=== PATIENT | male | born 1945 | race Native Hawaiian/Other Pacific Islander ===

== ENCOUNTER 2019-11-29 14:06 | Inpatient (IN) | payer OTHER ==
[~2019-11-29] VITALS: Ht 182.9 cm; Wt 76.7 kg
[2019-11-29] VITALS (14 sets, daily range): BP systolic 106–132; BP diastolic 50–78; TEMP 99.5–100.8; Ht 182.9 cm; Wt 76.7 kg
--- NOTE | 2019-11-29 14:00 | NUR ---
PT DIRECT ADMIT TO ICU FROM U PER BED. PT ASSISTED TO PCU BED FOR ISOLATION PURPOSES D/T DX OF FLU, BUT WITH ICU STATUS. PT PINK WITH DRY MOUTH & LIPS, ANSWERS 'NOEL' WHEN ASKED WHAT HIS NAME IS. ABD SOFT WITH BS. ADULT BRIEF DRY. + PULSES ALL EXTREMITIES. RESP EFFORT 33-55 . O2 SAT 89-91 ON ROOM AIR. MULTIPLE SCABBED AREAS TO ARMS MICHAEL.FADING BRUISE TO R ABD WITH SMALL SCAB IN THE CENTER. R ELBOW SL RED.
[~2019-11-29 14:06] MED LIST: ACET-206 PO; ALBU90AE13 INH; ASPI81TA4 PO; ASPIRIN 81 LOW81 MG PO; ATOR20TA2 PO; BUDE1AER5 INH; CEFU250T2 PO; CITALOPRAM10 M1 PO; CYAN10009 IM; DIVA250T PO; DONE5TAB PO; DONEPEZIL HYDRO10 M1 PO; ESCI10TA PO; LIPITOR40 MG PO; LISI20TA11 PO; LORA10TA3 PO; MAGNSUS68 PO; MELATONIN3 M1 PO; MEMA5TAB PO; METF100038 PO; METF500T PO; OSEL75CA PO; PRESERVISION PO; PROAIR HFA108 MCG/AC INH; RISP0.25 PO; TAMS0.4C PO; THIA100T8 PO; TRAZ50TA36 PO; TRAZODONE HYDR100 MG PO; ZESTRIL40 MG PO
--- NOTE | 2019-11-29 14:10 | NUR ---
22G INSYTE INSERTED X 1 STICK R HAND. SALINE LOCKED. DR SOLO NOTIFIED THAT PT WAS HERE.
--- NOTE | 2019-11-29 14:20 | NUR ---
DR SOLO IN TO SEE PT. NEW ORDERS.
--- NOTE | 2019-11-29 14:39 | NUR ---
ABG DRAWN PER RT.
[2019-11-29] MEDS ORDERED: DIVA250T PO (15:11)
[2019-11-29] MEDS ORDERED: DONE5TAB PO (15:12)
[2019-11-29] MEDS ORDERED: SYMBICORT1 AE1 INH (15:39)
--- NOTE | 2019-11-29 16:30 | NUR ---
PT DRINKING APPLE JUICE WITHOUT PROBLEMS. MOUTH CARE.
--- NOTE | 2019-11-29 17:35 | NUR ---
PT AWAKE & TRYING TO GET OFF OF THE FOOT OF THE BED. WHEN ASKED WHY HE WAS GETTING OOB HE SAID' I GOT TO PEE'.PT ASSISTED TO USE URINAL. 150 ML CLEAR RENEE URINE.ASSISTED PT TO PULL BACK UP IN BED, MIKE DENTON APPLIED, PT ON R SIDE.NS BOLUS STARTED VIA R HAND 22G INSYTE.
[2019-11-29 18:44] LABS: PLATELET COUNT 170 K/uL (142-355)
[2019-11-29 19:10] LABS: POTASSIUM 3.8 mmol/L (3.6-5.2)
[2019-11-30] VITALS (19 sets, daily range): BP systolic 108–154; BP diastolic 47–83; TEMP 97.1–99
--- NOTE | 2019-11-30 07:46 | NUR ---
RECIEVED REPORT PATIENT ASSISTED TO STANDING POSITION. VOIDED 300 ML URINAL. ALITTLE UNSTEADY WHEN UP. RESP DEPT HERE FOR ALTHEA TX. AM LABS ORDERED.
[2019-11-30 08:12] LABS: PLATELET COUNT 181 K/uL (142-355)
[2019-11-30 08:22] LABS: POTASSIUM 3.6 mmol/L (3.6-5.2)
--- NOTE | 2019-11-30 10:23 | NUR ---
PATIENT RESTING QUIETLY IN BED HOB UP EYES CLOSED RESP EVEN. VITALS SIGNS IMPROVING. RESPONDS TO VERBAL STIMULI CALM COOPERATIVE. DR SOLO VISITED CHECKED PATIENT, REPORTED ELEVATED BLOOD SUGAR. RECIEVED NEW ORDERS.
--- NOTE | 2019-11-30 10:25 | NUR ---
ALSO NOTED PATIENT LEFT EYE PUPIL ENLARGE IRREGULAR SHAPE REDNESS TO EYE ASKED PATIENT ABOUT INJURY STATED THAT HE HALE'T HURT HIS EYE, NOT RUBBING HIS EYE STATED THAT HE COULD SEE OK WITH LEFT EYE, WILL MONITOR.
--- NOTE | 2019-11-30 11:47 | NUR ---
PATIENT CONTINUES TO BE A LITTLE UNSTEADY WHEN UP. ASSSITED TO BEDSIDE COMODE VOIDED AND BM SOFT UNFORMED ASSISTED PATIENT BACK SITTING ON SIDE OF BED RECIEVED LEVEMIR INSULIN [address]ITS. SQ LEFT ARM. [address] SOLO STOPPED BY CHECKING PATIENT. WILL ORDER SSI. BLOOD SUGAR 296.
--- NOTE | 2019-11-30 12:50 | NUR ---
SITTING UP EDGE OF BED EATING SOFT DIABETIC LUNCH APPEARS TO BE DOING BETTER WANTS TO BE UP AND OUT OF BED. CALM, PATIENT POINTED TO MONITOR STATED THAT IT WAS RECORDING EVERYTHING WE SAID. EXPLAINED TO PATIENT WHAT THE MONITOR DID, AND THAT HE WAS IN THE HOSPITAL. EATING WELL.
--- NOTE | 2019-11-30 15:40 | NUR ---
PATIENT SITTING UP SIDE OF BED IV FLUIDS INFUSING WITHOUT DIFFICULTY. VOIDEING WELL, NO COMPLAINTS VOICED DRANK ONE CAN GLUCERNA 1.5. CALM COOPERATIVE NO ACUTE DISTRESS.
--- NOTE | 2019-11-30 18:13 | NUR ---
PATIENT HAS BEEN RESTING, AWAKEN STATED THAT HE NEEDED SOMETHING TO HELP HIM BREATH EASIER ASKING FOR HIS INHALER. CHECKED BREATH SOUNDS WHEEZING MICHAEL LUNG LEMONS. CALLED TO RESP DEPT STARTED DUONEB. PATIENT'S SAT PRIOR TO TX 98% WILL CONTINUE TO MONITOR.
--- NOTE | 2019-11-30 19:02 | NUR ---
IMPROVED RESP STATUS, PATIENT ASKING ABOUT HIS HOME MEDS. INHALER. UP SITTING ON SIDE OF BED SERVED DINNER TRAY STABLE VITAL SIGNS.
--- NOTE | 2019-11-30 21:52 | NUR ---
PT AWAKE. ASSISTED PT TO BR. PT VOIDED,
--- NOTE | 2019-11-30 22:56 | NUR ---
PATIENT IS A 74 YEAR OLD WHITE MALE FROM [facility]. PT HAS HISTORY OF COPD, DEMENTIA,ETOH, AND ALZHEIMERS. PT TESTED POSITIVE FOR THE FLU. BLOOD SUGAR CHECKED 229. CM WITH SR. O2 SATS 94 TO 99 PERCENT. PT IS TO AROUSE AND FOLLOWS INSTRUCTIONS.
--- NOTE | 2019-11-30 23:49 | NUR ---
PT COUGHING UNPRODUCTIVELY. PT WAS GIVEN ROBITUSSIN 15 ML PO.
[2019-12-01] VITALS (10 sets, daily range): BP systolic 100–155; BP diastolic 53–76; TEMP 97.6–99.7
--- NOTE | 2019-12-01 07:40 | NUR ---
AM ASSESSEMENT DONE PATIENT UP OOB TO BATHROOM VOIDED. WASHED UP AM CARE STATES "FEELING BETTER" CHECKED BLOOD SUGAR 207 RECIEVED 6 UNITS NOVOLOG INSULIN. NOTED GAUZE TO HAND MOIST, REMOVED IV OUT, CATH INTACT NO REDNESS NO SWELLING WILL LEAVE OUT FOR NOW. PATIENT EATING DRINKING WELL. OOB TO BATHROOM TO VOID. RESP DEPT HERE RECIEVED BREATHING TX.
--- NOTE | 2019-12-01 10:03 | NUR ---
RECIEVED NEW ORDERS RECIEVED MEDS ORDERED. ASSIST WITH BREAKFAST TRAY PATIENT STATED THAT HE WOULD EAT A LITTLE LATER "JUST NOT HUNGERY NOW". WILL GIVE SUPPLEMENT GLUCERNA PO. NO ACUTE DISTRESS NOTED. UP TO BATHROOM VOIDED. NOTED IMPROVED GAIT WHEN UP INCREASED STRENGTH.
--- NOTE | 2019-12-01 10:50 | NUR ---
RESTART IV 22 GA RIGHT WRIST X1 STICK. ASSISTED PATIENT WITH W/C AND FACE MASK TO CT FOR LUNG SCAN. NITA WELL BACK TO ROOM SITTING ON SIDE OF BED TAKING FEW BITES BREAKFAST RECIEVED SUPPLEMENT GLUCERNA 1.2.
--- NOTE | 2019-12-01 13:25 | NUR ---
RESTING QUIETLY EYES CLOSED RESP EVEN NO ACUTE DISTRESS NOTED.
--- NOTE | 2019-12-01 13:57 | NUR ---
AWAKE ASSISTED UP SITTING ON SIDE OF BED WASHED OFF, WARMED LUNCH TRAY, TAKING FEW BITES NO COMPLAINTS.
--- NOTE | 2019-12-01 17:35 | NUR ---
RESTING IN BED WATCHING TV NO COMPLAINTS STABLE VITAL SIGNS BLOOD SUGAR 273 RECIEVED 7 UNIT NOVOLOG INSULING WAITING FOR DINNER TRAY.
--- NOTE | 2019-12-01 22:46 | NUR ---
PT IS RESTING. USING BIPAP. O2 SAT IS 94 PERCENT. HR 111 BPM. BP 104/65.
--- NOTE | 2019-12-01 22:57 | NUR ---
PT TOOK PM MEDS. AMBULATORY IN HIS ROOM PCU1. NO COMPLAINTS VOICED.
[2019-12-02] VITALS: BP 110/77; BP 120/78; TEMP 98.5; TEMP 98.6
[2019-12-02 01:00] VITALS: BP 110/80
--- NOTE | 2019-12-02 02:04 | NUR ---
PT CONTINUES TO REST QUIETLY. VS STABLE.
--- NOTE | 2019-12-02 03:18 | NUR ---
PT UOB AMBULATORY IN HIS ROOM. HAS BEEN RESTING.
[2019-12-02 04:00] VITALS: BP 157/70
[2019-12-02] MEDS ORDERED: INSU100P SC (07:57)
[2019-12-02] MEDS ORDERED: INSU300I SC (07:58)
[2019-12-02] MEDS ORDERED: IPRATROPIUM/ INH (07:58)
[2019-12-02] MEDS ORDERED: PRED10TA27 PO (07:59)
[2019-12-02 08:00] VITALS: BP 157/63; TEMP 98.7
--- NOTE | 2019-12-02 08:00 | NUR ---
PATIENT SLEEPING, AWAKEN TOOK AM VITAL SIGNS, STABLE BLOOD SUGAR CHECKED [address] SOLO VISITED, RECIEVED N EW ORDERS PATIENT TO BE DISCHARGED BACK TO [facility] TODAY.
[2019-12-02] MEDS ORDERED: METF500T PO (08:26)
--- NOTE | 2019-12-02 08:55 | NUR ---
WILL GIVE AM MEDS NO IV SITE REPORTED THAT IT WAS PULLED OUT DURING THE NIGHT. SITE CLEAN DRY NO REDNESS NO SWELLING.
--- NOTE | 2019-12-02 10:30 | NUR ---
RECHECK BLOOD SUGAR 117, CALLED TO [facility] GIVE REPORT PT BEING TRANSFERED BACK WILL CALL BACK.
--- NOTE | 2019-12-02 11:21 | NUR ---
REPORT CALLED TO KALIA VALADEZ NURSE TAKING CALL.
--- NOTE | 2019-12-02 12:30 | NUR ---
ASSISTED UP TO SIDE OF BED DOING WELL ATE 100% LUNCH TRAY NO COMPLAINTS, RECIEVED CALL FROM [facility] WILL BE COMING TO GET PT RIGHT AFTER LUNCH.
[2019-12-02 12:47] VITALS: BP 176/65; TEMP 98
--- NOTE | 2019-12-02 14:00 | NUR ---
[facility] STAFF HERE WITH CHAIR, REVIEWED PATIENT ORDERS AND MEDS PATIENT DISCHARGED FROM PCU TO [facility]. NO COMPLAINTS VOICED
== END 2019-12-02 15:07 | disposition other institution (70) | DRG 190 ==
LOC: PCU 14:06
PROVIDERS: ADMIT Internal Medicine
DX: J44.1 Chronic obstructive pulmonary disease with (acute) exacerbation (principal); G92 Toxic encephalopathy; I10 Essential (primary) hypertension; E11.9 Type 2 diabetes mellitus without complications; E78.49 Other hyperlipidemia; N40.0 Benign prostatic hyperplasia without lower urinary tract symptoms; J09.X2 Influenza due to identified novel influenza A virus with other respiratory manifestations; R91.8 Other nonspecific abnormal finding of lung field
CPT/HCPCS: 36600; 80053; 82805; 85027; 87040; 94640; 94664; 94760; J0696; J1650; J1815; J2920; J3420; J3490; Q9963